=== PATIENT | female | born 1950 | race Caucasian/White ===

== ENCOUNTER 2020-12-17 11:25 | Emergency (ER) | payer MEDICARE ==
[~2020-12-17] VITALS: Ht 160 cm; Wt 85.6 kg
[2020-12-17] MEDS ORDERED: IRON18 MG PO (13:01)
[2020-12-17] MEDS ORDERED: RED YEAST RICE600 M1 PO (13:02)
[2020-12-17] MEDS ORDERED: OMEGA 3 FISH O1 EACH PO (13:02)
[2020-12-17] MEDS ORDERED: WOMEN'S DAILY1 EAC4 PO (13:03)
[2020-12-17] MEDS ORDERED: ONDANSETRON ODT4 MG PO (15:59)
== END 2020-12-17 16:26 | disposition home or self-care (01) ==
LOC: ED 11:25
DX: K63.89 Other specified diseases of intestine (principal); D72.829 Elevated white blood cell count, unspecified; Z88.1 Allergy status to other antibiotic agents; Z88.6 Allergy status to analgesic agent; Z79.899 Other long term (current) drug therapy
CPT/HCPCS: 74177; 80053; 80500; 81001; 83690; 83735; 85025; 99285-25; Q9967